=== PATIENT | female | born 1965 | race Caucasian/White ===

== ENCOUNTER 2017-07-23 16:43 | Emergency (ER) | payer BC ==
[~2017-07-23] VITALS: Ht 154.9 cm; Wt 79.5 kg
[2017-07-23 16:45] VITALS: BP 197/103
[2017-07-23] MEDS ORDERED: ACETAMINOPHEN 325 MG TABLET ONE (17:29)
[2017-07-23] MEDS ORDERED: ACETAMINOPHEN 325 MG TABLET PO ONE (17:30)
[2017-07-23 17:41] LABS: RAPID INFLUENZA A Negative (Negative)
[2017-07-23 17:42] LABS: RAPID INFLUENZA B Negative (Negative)
== END 2017-07-23 18:05 | disposition home or self-care (01) ==
LOC: ED 17:57
DX: J00 Acute nasopharyngitis [common cold] (principal); I10 Essential (primary) hypertension
CPT/HCPCS: 71046; 87400; 93005; 99285

== ENCOUNTER 2017-09-07 06:02 | Emergency (ER) | payer BC ==
[~2017-09-07] VITALS: Ht 154.9 cm; Wt 78.0 kg
[2017-09-07] MEDS ORDERED: LOSA1TAB22 PO (07:18)
[2017-09-07 07:52] LABS: ALANINE AMINOTRANSFERASE 45 U/L (12-78); ALBUMIN 3.8 g/dL (3.4-5.0); ANION GAP 8 mmol/L (5-15); BASOPHILS # (AUTO) 0.02 x10^3/uL (0-0.1); BASOPHILS % (AUTO) 0 % (0-1); CALCIUM 8.2 mg/dL (8.5-10.1); CHLORIDE 106 mmol/L (98-107); CREATININE 0.79 mg/dL (0.55-1.02); EOSINOPHILS % (AUTO) 1 % (1-7); LYMPHOCYTES # (AUTO) 1.79 x10^3/uL (1-3.4); LYMPHOCYTES % (AUTO) 25 % (22-44); MD NO; MEAN CORPUSCULAR HEMOGLOBIN 30.3 pg (27.0-34.8); MEAN CORPUSCULAR HGB CONC 34.3 g/dL (32.4-35.8); MEAN CORPUSCULAR VOLUME 88.4 fL (80-100); MEAN PLATELET VOLUME 8.1 fL (7.4-10.4); MONOCYTES # (AUTO) 0.46 x10^3/uL (0.2-0.8); MONOCYTES % (AUTO) 7 % (2-9); NEUTROPHILS # (AUTO) 4.76 x10^3/uL (1.8-6.8); NEUTROPHILS % (AUTO) 67 % (42-75); PLATELET COUNT 268 x10^3/uL (130-400); RED BLOOD COUNT 4.84 x10^6/uL (3.82-5.3); RED CELL DISTRIBUTION WIDTH 13.7 % (9.6-15.2)
[2017-09-07 07:55] LABS: ALKALINE PHOSPHATASE 57 U/L (45-117); BILIRUBIN,TOTAL 0.8 mg/dL (0.2-1.0); TOTAL PROTEIN 7.3 g/dL (6.4-8.2)
[2017-09-07 08:11] LABS: MICROSCOPIC AUTO
[2017-09-07 08:29] LABS: CULTURE INDICATED? YES
[2017-09-07 10:00] VITALS: BP 135/84
== END 2017-09-07 10:03 | disposition home or self-care (01) ==
LOC: ED 08:47
DX: K29.00 Acute gastritis without bleeding (principal); I10 Essential (primary) hypertension; Z90.49 Acquired absence of other specified parts of digestive tract; Z90.710 Acquired absence of both cervix and uterus
CPT/HCPCS: 36415; 80053; 81001; 83690; 85025; 87086; 99284

== ENCOUNTER 2017-09-07 23:37 | Emergency (ER) | payer BC ==
[~2017-09-07] VITALS: Ht 154.9 cm; Wt 79.2 kg
[~2017-09-07 23:37] MED LIST: LOSA1TAB22 PO
[2017-09-08 00:19] LABS: BASOPHILS # (AUTO) 0.02 x10^3/uL (0-0.1); BASOPHILS % (AUTO) 0 % (0-1); EOSINOPHILS # (AUTO) 0.25 x10^3/uL (0-0.4); EOSINOPHILS % (AUTO) 4 % (1-7); LYMPHOCYTES # (AUTO) 1.61 x10^3/uL (1-3.4); LYMPHOCYTES % (AUTO) 25 % (22-44); MD NO; MEAN CORPUSCULAR HEMOGLOBIN 30.5 pg (27.0-34.8); MEAN CORPUSCULAR HGB CONC 34.6 g/dL (32.4-35.8); MEAN CORPUSCULAR VOLUME 88.2 fL (80-100); MEAN PLATELET VOLUME 7.9 fL (7.4-10.4); MONOCYTES # (AUTO) 0.53 x10^3/uL (0.2-0.8); MONOCYTES % (AUTO) 8 % (2-9); NEUTROPHILS # (AUTO) 4.01 x10^3/uL (1.8-6.8); NEUTROPHILS % (AUTO) 62 % (42-75); PLATELET COUNT 235 x10^3/uL (130-400); RED BLOOD COUNT 4.63 x10^6/uL (3.82-5.3); RED CELL DISTRIBUTION WIDTH 13.7 % (9.6-15.2)
[2017-09-08 00:28] LABS: ALANINE AMINOTRANSFERASE 46 U/L (12-78); ALBUMIN 3.4 g/dL (3.4-5.0); ANION GAP 8 mmol/L (5-15); CALCIUM 8.3 mg/dL (8.5-10.1); CHLORIDE 107 mmol/L (98-107); CREATININE 0.85 mg/dL (0.55-1.02)
[2017-09-08 00:32] LABS: ALKALINE PHOSPHATASE 67 U/L (45-117); BILIRUBIN,TOTAL 0.4 mg/dL (0.2-1.0); TOTAL PROTEIN 6.9 g/dL (6.4-8.2); TROPONIN I < 0.015 ng/mL (0.000-0.045)
[2017-09-08] MEDS ORDERED: OMNIPAQUE 350 MG/ML, 100ML BOTTLE ONE (00:37)
[2017-09-08 00:53] VITALS: BP 126/71
== END 2017-09-08 02:27 | disposition home or self-care (01) ==
LOC: ED 23:56
DX: K25.3 Acute gastric ulcer without hemorrhage or perforation (principal); I10 Essential (primary) hypertension; Z90.49 Acquired absence of other specified parts of digestive tract
CPT/HCPCS: 36415; 74177; 80053; 83690; 84484; 85025; 86677; 93005; 99285; Q9967